=== PATIENT | female | born 1945 | race Caucasian/White ===

== ENCOUNTER 2021-03-13 07:20 | Day surgery (SDC) | payer MEDICARE, OTHER ==
[~2021-03-13] VITALS: Ht 160 cm; Wt 59.1 kg
[~2021-03-13 07:20] MED LIST: ATEN25; B-121000 MC6; CRANBERRY500 MG; DHEA 2525 MG; ERGO400; ESTR2; GLUCOSAMINE-CH1 EA48; KRILL OIL500 MG; L-ARGININE350 MG; MAGNESIUM MALATE; MULVITB; Natrol 5-Htp50 MG; POTASSIUM GLUCO99 M1; Rutin500 MG; Selenomax200 MCG; UBIQUINOL100 MG; Vitamin C100 M1; [UNRECOGNIZED DRUG - OTHER]
--- NOTE | 2021-03-13 07:58 | NUR ---
03/13/21 0758 Tereso Bass VANCOMYCIN STARTED AT 0753 VIA PLUM PUMP
--- NOTE | 2021-03-13 08:54 | NUR ---
03/13/21 0854 Madyson Ku BUPIVACAINE 0.5% 30 MLS MIXED W/ EPI 0.15ML PER ORDER TO CONSTITUTE BUPIVACAINE 0.5% 1:200,000 FOR INJECTION AT OPSITE BY DR TOLEDO FOR PAIN CONTROL.
--- NOTE | 2021-03-13 11:08 | NUR ---
03/13/21 1108 CARLOTN JEFFREY PT IS ALERT, AWAKE AND TEARY WHEN FIRST ENTERED PACU. DENIES PAIN.
--- NOTE | 2021-03-13 11:47 | NUR ---
03/13/21 1147 CARLTON JEFFREY PT IS VERY TALKATIVE. MOVES LEG ABOVE HER HEART. VERY ACTIVE AND CHATTY
== END 2021-03-13 11:53 | disposition home or self-care (01) ==
LOC: ORSCSDS 07:20
PROVIDERS: Podiatrist Foot & Ankle Surgery
PROC: 0L8V0ZZ Division of Right Foot Tendon, Open Approach (ICD-10-PCS; principal; 2021-03-13 08:30)
PROC: 0QSN04Z Reposition Right Metatarsal with Internal Fixation Device, Open Approach (ICD-10-PCS; principal; 2021-03-13 08:30)
PROC: 0QSQ04Z Reposition Right Toe Phalanx with Internal Fixation Device, Open Approach (ICD-10-PCS; principal; 2021-03-13 08:30)
DX: M21.611 Bunion of right foot (principal); M20.41 Other hammer toe(s) (acquired), right foot; M77.41 Metatarsalgia, right foot; Z87.891 Personal history of nicotine dependence; I10 Essential (primary) hypertension; Z79.82 Long term (current) use of aspirin; Z79.899 Other long term (current) drug therapy
CPT/HCPCS: C1713; C1769; J0171; J1100; J2250; J2405; J2704; J3010; J3370; J7120

== ENCOUNTER 2021-03-27 18:00 | Emergency (ER) | payer MEDICARE, OTHER ==
[~2021-03-27] VITALS: Ht 165.1 cm; Wt 56.7 kg
== END 2021-03-27 22:50 | disposition left against medical advice (07) ==
LOC: ER 18:00
DX: R23.8 Other skin changes (principal); Z53.21 Procedure and treatment not carried out due to patient leaving prior to being seen by health care provider
CPT/HCPCS: 99282